=== PATIENT | female | born 1985 | race Two or more races ===

== ENCOUNTER 2018-12-10 12:45 | Inpatient (IN) | payer OTHER ==
[~2018-12-10] VITALS: Ht 162.6 cm; Wt 3.2 kg
[2018-12-17] MEDS ORDERED: PRENATAL VITAM1 EAC3 PO (08:30)
== END 2018-12-20 16:14 | disposition home or self-care (01) | DRG 788 ==
LOC: OB/GYN 12-17 07:53 → O/R 12-17 07:53 → LDR 12-17 08:45 → OB/GYN 12-17 14:43
PROVIDERS: ADMIT Obstetrics & Gynecology
PROC: 4A1HXCZ Monitoring of Products of Conception, Cardiac Rate, External Approach (ICD-10-PCS; 2018-12-17)
PROC: 10D00Z1 Extraction of Products of Conception, Low, Open Approach (ICD-10-PCS; principal; 2018-12-17 08:45)
DX: O34.211 Maternal care for low transverse scar from previous cesarean delivery (principal); O75.82 Onset (spontaneous) of labor after 37 completed weeks of gestation but before 39 completed weeks gestation, with delivery by (planned) cesarean section; O82 Encounter for cesarean delivery without indication; Z3A.39 39 weeks gestation of pregnancy; Z37.0 Single live birth